=== PATIENT | male | born 1980 | race Caucasian/White ===

== ENCOUNTER 2025-03-02 21:07 | Emergency (ER) | payer MEDICAID, OTHER ==
[~2025-03-02] VITALS: Ht 177.8 cm; Wt 79.4 kg
[2025-03-02] MEDS ORDERED: IBUPROFEN 400 MG TABLET ONE ×2 (21:47→23:39)
[2025-03-02] MEDS: IBUPROFEN 400 MG TABLET PO ONE ×2 (21:49→23:41)
[2025-03-02] MEDS ORDERED: IBUP-1957 PO (23:33)
[2025-03-02 23:49] VITALS: BP 127/66; TEMP 97.8; O2SAT 98
== END 2025-03-02 23:49 | disposition home or self-care (01) ==
LOC: ER 21:13
DX: S59.902A Unspecified injury of left elbow, initial encounter (principal); Z79.1 Long term (current) use of non-steroidal anti-inflammatories (NSAID); Z60.2 Problems related to living alone; X50.0XXA Overexertion from strenuous movement or load, initial encounter; Y93.89 Activity, other specified; Y92.89 Other specified places as the place of occurrence of the external cause; Y99.8 Other external cause status
CPT/HCPCS: 73060-TC; 73080-TC; 73200-TC